=== PATIENT | female | born 1965 | race Two or more races ===

== ENCOUNTER 2025-04-18 16:55 | Emergency (ER) | payer MEDICAID, SELFPAY ==
[2025-04-18 16:56] VITALS: BMI 28.2
--- NOTE | 2025-04-18 17:03 | EKG_ITS ---
[facility] Test Date: 2025-04-18 Pat Name: ROMEL MCWILLIAMS Department: Room: - Gender: Female [employer]: : 1965 Requested By: ED Temporary Provider Order Number: [id number] Reading MD: ED Temporary Provider Measurements Intervals [place] Rate: 83 P: 59 NJ: 186 QRS: 59 QRSD: 89 T: 55 QT: 358 QTc: 421 Interpretive Statements SINUS RHYTHM POSSIBLE LEFT ATRIAL ENLARGEMENT [-0.1mV P-WAVE IN V1/V2] No previous ECG available for comparison /store/S0/[id number]/ecg/[id number].pdf
[2025-04-18 17:14] VITALS: BP 172/98; BP 186/95; PULSE 90; RESP 18; TEMP 37; O2SAT 98; BMI 30.5
--- NOTE | 2025-04-18 17:17 | XR_ITS ---
Examination: Abdomen sonogram, Limited Date and time of exam: April 18, 2025, 1719 hrs. Indications: Epigastric pain today Technique: Real-time manuel scale transabdominal sonographic images of the upper abdomen obtained. Findings: Normal gallbladder Normal common bile duct 0.3 cm Pancreatic head 1.8 cm Liver 16.4 cm fatty infiltration no focal liver lesions Normal hepatopedal portal venous flow Patent IVC Impression: Normal gallbladder
--- NOTE | 2025-04-18 17:17 | XR_ITS ---
Examination: PA lateral chest 2 views Technique: Upright PA lateral chest 2 views Date and time: April 18, 2025, 1748 hrs. Indications: Chest pain shortness of breath beginning 2 days ago. Findings: Mild opacity posterior basal segment left lower lobe obscuring detail left hemidiaphragm Increased AP dimension chest Normal heart size Impression: Suspicious for early pneumonia posterior basal segment left lower lobe
--- NOTE | 2025-04-18 17:17 | PD.EDRME ---
Rapid Medical Screening Exam RME Arrival date/time: 04/18/25 16:55 60-year-old female presents to the emergency room today complains of upper abdominal pain after eating today Chief Complaint: Chest Pain Vital signs: Vital Signs Temperature 98.6 F 04/18/25 17:14 Pulse Rate 90 04/18/25 17:14 Respiratory Rate 18 04/18/25 17:14 Blood Pressure 186/95 H 04/18/25 17:14 Pulse Oximetry (%) 98 04/18/25 17:14 Oxygen Delivery Method Room Air 04/18/25 17:14
[2025-04-18 18:21] LABS: Basophils # (Auto) 0.0 Thou/mm3 (0.0-0.2); Basophils % (Auto) 1 % (0-2.5); Eosinophils # (Auto) 0.1 Thou/mm3 (0.0-0.5); Eosinophils % (Auto) 1 % (0-10); Hematocrit 37.6 % (36.0-46.0); Hemoglobin 12.8 g/dL (12.0-16.0); Immature Granulocytes Auto 0.04 Thou/mm3 (0.00-0.00); Lymphocytes # (Auto) 3.9 Thou/mm3 (1.0-4.8); Lymphocytes % (Auto) 47 % (10-50); Mean Corpuscular HGB Conc 34.0 g/dl (31.0-37.0); Mean Corpuscular Hemoglobin 29.7 pg (25.0-35.0); Mean Corpuscular Volume 87 fL (80-100); Monocytes # (Auto) 0.5 Thou/mm3 (0.0-0.8); Monocytes % (Auto) 6 % (0-12); Neutrophils # (Auto) 3.7 Thou/mm3 (1.8-7.7); Neutrophils % (Auto) 44 % (37-80); Nucleated Red Blood Cell # 0.00 Thou/mm3 (0.00-0.00); Nucleated Red Blood Cell % 0 /100 WBC (0); Platelet Count 237 Thou/mm3 (140-440); RDW Standard Deviation 41.6 fL (36.4-46.3); Red Blood Count 4.31 Miln/mm3 (4.00-5.20); White Blood Count 8.3 Thou/mm3 (3.6-11.0)
[2025-04-18 18:34] LABS: Alanine Aminotransferase 16 U/L (10-49); Albumin, Serum 4.6 gm/dL (3.5-5.0); Albumin/Globulin Ratio 1.6 (1.2-2.2); Alkaline Phosphatase 87 U/L (46-116); Anion Gap 11 (7-16); Aspartate Amino Transferase 15 U/L (0-34); BUN/Creatinine Ratio 23 Ratio (12-20); Bilirubin,Total 0.4 mg/dL (0.3-1.2); Blood Urea Nitrogen 16 mg/dL (9-23); Calcium 9.5 mg/dL (8.3-10.6); Calcium (Corrected) 9.5 mg/dL (8.5-10.1); Carbon Dioxide 27.3 mMol/L (20.0-31.0); Chloride 107 mMol/L (98-107); Creatinine (Component) 0.7 mg/dL (0.6-1.3); Estimated Creatinine Clearance 85.7 mL/min (>60); Globulin 2.8 gm/dL (2.3-3.5); Glucose 99 mg/dL (74-106); Lipase 35 U/L (12-53); Osmolality,Calculated 289 (275-295); Potassium 4.1 mMol/L (3.4-5.1); Sodium 145 mMol/L (136-145); Total Protein 7.4 gm/dL (5.7-8.2); Troponin I < 0.002 ng/mL (0.0-0.045); eGFR > 60 See Note
[2025-04-18 20:05] VITALS: BP 163/98; PULSE 87; RESP 18; TEMP 36.7; O2SAT 100
--- NOTE | 2025-04-18 20:26 | PD.EDCHEST ---
ED Chest Pain RME/HPI General Chief Complaint: Chest Pain Stated Complaint: CHEST PAIN X3 HOURS WITH SOB Arrival date/time: 04/18/25 16:55 RME / HPI RME / HPI narrative: 04/18/25 16:55 60-year-old female presents to the emergency room today complains of upper abdominal pain after eating today DR. ALVAREZ MAIN ED EVALUATION: Patient presenting episodic lower substernal chest pain, described as pressure-like, radiating to the mid-substernal region. Today, symptoms lasting approximately 45 minutes. Reports mild diaphoresis, although denies associated SOB, N/V, or palpitations. No exertional or pleuritic component. Cardiac Risk Factors: Negative for HTN, DM, Elevated cholesterol, tobacco use, or FHx of heart disease. PE Risk Factors: Negative for recent travel, immobilization, surgery, hormonal replacement, or topbacco use. PMH: Unremarkable. PSH: Unremarkable. Allergies: None. Related Data Previous Rx's ?Medication ?Instructions ?Recorded amlodipine 2.5 mg tablet 2.5 mg PO QDAY #30 tabs 04/18/25 pantoprazole 20 mg tablet,delayed 20 mg PO QDAY #30 tabs 04/18/25 release (Protonix) Allergies Allergy/AdvReac Type Severity Reaction Status Date / Time No Known Allergies Allergy Verified 04/18/25 16:56 Review of Systems Review of Systems Systems Reviewed: All systems reviewed, normal except as documented ED Exam Narrative Physical exam: GEN. APPEARANCE: The patient is alert awake oriented X-3 in no distress, lying down comfortably, does not look ill/toxic. Patient has good eye contact. Patient is cooperative. C/o mild chest discomfort. VITALS: All vitals were reviewed and the pulse ox is 100% on room air which is normal according to my interpretation. HEENT: Normocephalic, atraumatic. Pupils are equal and reactive. Oral mucosa is moist. Patent Nares NECK: Supple, nontender, no thyromegaly, no meningismus, no JVD, no step offs CHEST: Symmetrical, atraumatic, and with equal expansion , Nontender on palpation no deformity and no crepitus. CARDIOVASCULAR: Heart regular rhythm no murmur or gallop rub or extra beats. LUNGS: Clear to auscultation bilaterally with symmetrical chest rise. No laboring tachypnea or wheezing. No intercostal subcostal retraction. No rales and no rhonchi. ABDOMEN: Soft, flat, nontender to palpation, no guarding or rebound tenderness. There are no abnormal masses palpated. Active and normal bowel sounds. EXTREMITIES: Nontender. No edema. No cyanosis. Patient is able to move all 4 extremities well, with full ROM and good CSM. SKIN: Warm and dry, no jaundice or rashes noted. MUSCULOSKELETAL: No lubar or midline bony tenderness. There is no CVA tenderness. No paraspinal muscle spasm or tenderness. NEURO: Patient is RICHARDSON x 4, Cranial nerves II through XII grossly intact. There is no focal neurologic deficits noted. GCS is 15, PNS and [employer] appear grossly intact. PSYCHIATRIC: Patient is in normal mood and affect, cooperative, no SI or HI or hallucinations. Course Course Course Narrative: CXR was ordered for determining the etiology of shortness of breath. Quality Measures none Orders Category Date Time Status EKG (ED ONLY) *Do not use* NOW Care 04/18/25 17:03 Completed EKG (ED Only) Stat Exams 04/18/25 17:03 Draft US gall bladder Stat Exams 04/18/25 17:17 Completed XR chest 2V Stat Exams 04/18/25 17:17 Completed CBC Stat Lab 04/18/25 18:00 Completed Comprehensive Metabolic Panel Stat Lab 04/18/25 18:00 Completed Lipase Stat Lab 04/18/25 18:00 Completed Troponin I Stat Lab 04/18/25 18:00 Completed Troponin I Stat Lab 04/18/25 20:14 Completed Nitroglycerin Oint 2% [Nitro-paste Oint 2%] Med 04/18/25 20:45 Discontinued 0.5 inch TOP X1 ONE Pantoprazole [Protonix] Med 04/18/25 20:56 Discontinued 20 mg PO X1 ONE Vital Signs Vital signs: Vital Signs Temperature 98.6 F 04/18/25 17:14 Pulse Rate 90 04/18/25 17:14 Respiratory Rate 18 04/18/25 17:14 Blood Pressure 186/95 H 04/18/25 17:14 Pulse Oximetry (%) 98 04/18/25 17:14 Oxygen Delivery Method Room Air 04/18/25 17:14 Chest Pain MDM Narrative MDM Narrative:: Scribe Attestation: I, Rhonda Guerrero, am scribing for and in the presence of Dr. Alvarez. Provider Notation: Although this document has been carefully reviewed, there may still be some phonetic and other typographical errors. These errors are purely grammatical due to imperfections in the software program and should not be construed in any way to compromise the substance of the patient's medical care during this visit. Patient presenting episodic lower substernal chest pain, described as pressure-like, radiating to the mid-substernal region. Today, symptoms lasting approximately 45 minutes. Please see PE findings. Laboratory markers including CBC and serum chemistries were unremarkable. Initial Troponin I negative. EKG without evidence of ischemia, infarction, or pericarditis. Currently pending Troponin #2. Patient's BP modestly elevated at 163/98 and initially 186 systolic. Patient treated with topical Nitroglycerin and will consider initiation of anti-hypertensive medication and outpatient stress test. Clinical impression includes accelerated hypertension and non-specific chest pain. Patient data External records reviewed:: [facility] previous records (No prior ED records available for review.) Clinical information provided by:: patient Social determinants that could affect healthcare access:: none Patient has the following chronic illnesses:: None reported How is presenting disease/condition affected by chronic disease/condition?: no chronic disease Evaluation data The following diagnostics were reviewed and interpreted by me:: lab results, radiology exam(s) and EKG tracing(s) Lab and/or radiology exams considered but not ordered:: None Interpretation Summary: RADIOLOGY Chest X-Ray: Findings: Mild opacity posterior basal segment left lower lobe obscuring detail left hemidiaphragm Increased AP dimension chest Normal heart size Impression: Suspicious for early pneumonia posterior basal segment left lower lobe Gallbladder US: Findings: Normal gallbladder Normal common bile duct 0.3 cm Pancreatic head 1.8 cm Liver 16.4 cm fatty infiltration no focal liver lesions Normal hepatopedal portal venous flow Patent IVC Impression: Normal gallbladder Medications / Prescriptions Medications or Prescriptions considered but not ordered:: None Medication administrations:: Medication Administration History Discontinued Medications Nitroglycerin (Nitroglycerin Oint 2% 1 Inch Packet) 0.5 inch TOP X1 ONE Stop: 04/18/25 20:46 Pantoprazole Sodium (Pantoprazole 20 Mg Tablet) 20 mg PO X1 ONE Stop: 04/18/25 20:57 See above if any Consultations Consultation(s) initiated? (list below): No Diagnosis Chest Pain Differential Diagnosis: stable angina, unstable angina pectoris, atypical chest pain, st elevation myocardial infarction, costochondritis, chest pain and biliary colic Most likely diagnosis given after review of the tests above:: Accelerated hypertension, non-specific chest pain Admission Indicated Admission indicated?: not indicated Explain why admission is indicated or not indicated:: Patient does not meet admission criteria Admission Request Was there a request for admission?: No Disposition Plan Disposition Plan: Discharge Discharge Attestation Discharge Attestation: The patient and all family members were given an opportunity to ask questions and understood the discharge instructions. Discharge instructions specifically effects, indications for sooner follow up or return to the emergency department, and the expected course of current diagnosis. Patient condition: Stable Discharge Plan Plan Patient Disposition: HOME (Self Care) Discharge Disposition comment: Stable Prescriptions/Referrals Prescriptions/Med Rec: New amlodipine 2.5 mg tablet 2.5 mg PO QDAY Qty: 30 1RF pantoprazole [Protonix] 20 mg tablet,delayed release (DR/EC) 20 mg PO QDAY Qty: 30 1RF Referrals: No Primary/Family,Physician [Primary Care Provider] - In 1 week Problem List Clinical Impression: Nonspecific chest pain, Accelerated hypertension Patient/Caregiver Discharge Instructions Discharge Activity: activity as tolerated Diet Instructions: Low-salt Education Materials: Eating Heart-Healthy Foods, Blood Pressure Check Steps, ED High Blood Pressure ... Additional Instructions: Begin amlodipine in the a.m. Blood pressure checks twice daily. Follow-up with outpatient PMD for consideration of stress testing within the next several weeks after blood pressure is controlled. Print Language: Malawian Stand Alone Forms: Jody Award Info., Patient Portal Info Letter
[2025-04-18 20:48] LABS: Troponin I < 0.002 ng/mL (0.0-0.045)
[2025-04-18 21:20] VITALS: BP 145/97; PULSE 80
[2025-04-18] MEDS: NITROGLYCERIN OINT 2% 1 INCH PACKET 0.5 INCH TOP (21:20)
[2025-04-18 21:21] VITALS: BP 145/97; PULSE 80; RESP 18; O2SAT 100
[2025-04-18] MEDS: PANTOPRAZOLE 20 MG TABLET PO (21:23)
== END 2025-04-18 21:27 | disposition home or self-care (01) ==
PROVIDERS: Nurse Practitioner Family; Nurse Practitioner Primary Care; Emergency Provider Emergency Medicine
DX: I10 Essential (primary) hypertension (principal); R07.9 Chest pain, unspecified; R10.13 Epigastric pain
CPT/HCPCS: 36415; 71046; 76705; 80053; 83690; 84484; 85025; 93005; 99284; A9270